=== PATIENT | male | born 1965 | race African-American/Black ===

== ENCOUNTER 2019-03-14 11:27 | Emergency (ER) | payer MEDICAID ==
[~2019-03-14] VITALS: Ht 172.7 cm; Wt 77.0 kg
[2019-03-14] MEDS ORDERED: KETOROLAC 60MG/2ML VIAL IM ONE (12:30)
[2019-03-14 14:00] VITALS: BP 138/82
== END 2019-03-14 14:18 | disposition home or self-care (01) ==
LOC: ER 11:27
DX: M79.645 Pain in left finger(s) (principal); F17.200 Nicotine dependence, unspecified, uncomplicated; I10 Essential (primary) hypertension
CPT/HCPCS: 29130; 73130; 96372; 99283; J1885

== ENCOUNTER 2022-05-09 15:51 | Emergency (ER) | payer MEDICAID ==
[~2022-05-09] VITALS: Ht 175.3 cm; Wt 87.0 kg
[2022-05-09 18:18] LABS: BASOPHILS % 0.7 % (0.0-2.0); EOSINOPHILS % 0.1 % (0.0-5.0); HEMATOCRIT. 42.8 % (42.0-52.0); HEMOGLOBIN. 14.3 g/dL (14.0-18.0); MEAN CORPUSCULAR HEMOGLOBIN 28.5 pg (28.0-32.0); MEAN CORPUSCULAR VOLUME 85.5 fL (80.0-94.0); MEAN PLATELET VOLUME 8.6 fl (7.4-10.4); MONOCYTES % 13.7 % (2.0-8.0); NEUTROPHILS % 59.5 % (40.0-76.0); PLATELET 399 x1000/uL (130-400); RED BLOOD CELL COUNT 5.01 mill/uL (4.7-6.1)
[2022-05-09 18:31] LABS: CHLORIDE 107 mEq/L (98-107)
[2022-05-09 19:41] VITALS: BP 142/86
== END 2022-05-09 19:42 | disposition home or self-care (01) ==
LOC: ER 15:51
DX: F41.9 Anxiety disorder, unspecified (principal); F12.90 Cannabis use, unspecified, uncomplicated; I10 Essential (primary) hypertension
CPT/HCPCS: 36415; 80053; 84484; 85025; 99283